=== PATIENT | female | born 1975 | race Caucasian/White ===

== ENCOUNTER 2017-07-07 14:47 | Emergency (ER) | payer MEDICAID, SELFPAY ==
[2017-07-07 14:48] VITALS: BP 114/85; PULSE 89; RESP 16; TEMP 37.4; O2SAT 97; BMI 33.2
--- NOTE | 2017-07-07 15:54 | ED.VISSUMM ---
- ER Visit Summary Date of Service: 07/07/17 Chief Complaint: [Right ear pain] History of Present Illness: The patient is a 41 F [presents to the emergency department with chief complaint of right ear pain that started 5 days ago. Patient states that she was seen at the urgent care yesterday and started on cefdinir and prednisone. Patient states that she had a fever yesterday up to 101. Patient complains of a slight sore throat. Patient states that she felt a pop in her right ear when she opened her mouth that is when the pain started. Patient denies difficulty swallowing. Patient has noted some lesions to her mouth and tongue.] Patient denies any drainage from her ear. Patient states that she gets ear infections every year in the right ear. Physical Examination: [HEENT-PERRLA, EOMI. Cranial nerves II through XII grossly intact. TMs clear. Mucous membranes moist. No adenopathy. No evidence of dental abscess. There is no pharyngeal erythema. I do not see any lesions or ulcerations to the oral mucosa or posterior oropharynx or tongue. No lesions noted to the cornea. No herpetic lesions noted to the ear or face in general. Cardiovascular-regular rate and rhythm without murmur or ectopy Lungs-clear to auscultation, chest wall stable without crepitus or subcu emphysema Abdomen-normoactive bowel sounds, soft, nontender, no rebound or rigidity, no peritoneal signs. Extremities-intact ?4, normal range of motion, normal pulses, atraumatic] Test Results: [None indicated] Emergency Department Course and Treatment: [Patient to continue with her current meds and I will write her a prescription for [place] for pain. Patient will also be referred to ear nose and throat physician nutrition assistant.] Treatment Plan: [[place] for pain and follow-up with ear nose and throat.] Disposition: [Discharged to home in stable condition.] Impression: [Right ear pain-etiology uncertain.] This note was generated with [employer] dictation software. It may contain incorrect words, spelling, and punctuation that were not noted in review of the chart prior to signing ED Disposition - Plan for ED Patient: Chief Complaint: Ear Problem Referrals: Care Physician,No Primary [Primary Care Provider] -
--- NOTE | 2017-07-07 15:57 | ED.DCSUM_ITS ---
- ER Visit Summary Date of Service: 07/07/17 Chief Complaint: [Right ear pain] History of Present Illness: The patient is a 41 F [presents to the emergency department with chief complaint of right ear pain that started 5 days ago. Patient states that she was seen at the urgent care yesterday and started on cefdinir and prednisone. Patient states that she had a fever yesterday up to 101. Patient complains of a slight sore throat. Patient states that she felt a pop in her right ear when she opened her mouth that is when the pain started. Patient denies difficulty swallowing. Patient has noted some lesions to her mouth and tongue.] Patient denies any drainage from her ear. Patient states that she gets ear infections every year in the right ear. Physical Examination: [HEENT-PERRLA, EOMI. Cranial nerves II through XII grossly intact. TMs clear. Mucous membranes moist. No adenopathy. No evidence of dental abscess. There is no pharyngeal erythema. I do not see any lesions or ulcerations to the oral mucosa or posterior oropharynx or tongue. No lesions noted to the cornea. No herpetic lesions noted to the ear or face in general. Cardiovascular-regular rate and rhythm without murmur or ectopy Lungs-clear to auscultation, chest wall stable without crepitus or subcu emphysema Abdomen-normoactive bowel sounds, soft, nontender, no rebound or rigidity, no peritoneal signs. Extremities-intact ?4, normal range of motion, normal pulses, atraumatic] Test Results: [None indicated] Emergency Department Course and Treatment: [Patient to continue with her current meds and I will write her a prescription for [place] for pain. Patient will also be referred to ear nose and throat physician real estate acquisition analyst.] Treatment Plan: [[place] for pain and follow-up with ear nose and throat.] Disposition: [Discharged to home in stable condition.] Impression: [Right ear pain-etiology uncertain.] This note was generated with [employer] dictation software. It may contain incorrect words, spelling, and punctuation that were not noted in review of the chart prior to signing ED Disposition - Plan for ED Patient: Chief Complaint: Ear Problem Referrals: Care Physician,No Primary [Primary Care Provider] -
--- NOTE | 2017-07-07 15:58 | ED.DEP ---
ED Disposition - Plan for ED Patient: Chief Complaint: Ear Problem Prescriptions: Hydrocodone Bitart/Apap 5-325 [[place] 5/325] 1 - 2 tab PO Q4H PRN PRN 3 Days #12 tab PRN Reason: Pain Referrals: Care Physician,No Primary [Primary Care Provider] - Igor Dominguez MD [STAFF PHYSICIAN] - 3-5 Days Additional Instructions: unclear cause of your ear pain
--- NOTE | 2017-07-07 16:02 | DCINST.ED_ITS ---
ED Disposition - Plan for ED Patient: Chief Complaint: Ear Problem Prescriptions: Hydrocodone Bitart/Apap 5-325 [[place] 5/325] 1 - 2 tab PO Q4H PRN PRN 3 Days #12 tab PRN Reason: Pain Referrals: Care Physician,No Primary [Primary Care Provider] - Igor Dominguez MD [STAFF PHYSICIAN] - 3-5 Days Additional Instructions: unclear cause of your ear pain
== END 2017-07-07 16:08 | disposition home or self-care (01) ==
LOC: ED 15:57
PROVIDERS: Emergency Provider Emergency Medicine
DX: H92.01 Otalgia, right ear (principal); Z72.0 Tobacco use
CPT/HCPCS: 99283